=== PATIENT | female | born 2000 | race Hispanic/Latino ===

== ENCOUNTER → 2025-04-20 | Outpatient (CLI) | payer OTHER ==
--- NOTE | 2025-04-21 01:04 | HMCSR ---
APPROVED REPORT EXAM: Two-dimensional and M-mode echocardiogram with Doppler and color Doppler. INDICATION ICD: Palpitations R00.2 2D Dimensions RVDd3.4 cmLVEF(%)68.7 (>50%)LVED Vol(simp.)71.0 mL IVSd0.9 (0.7-1.1cm)FS(%)38 %LVES Vol(simp.)24.0 mL LVDd4.1 (3.8-5.6cm)LA (2D)3.9 (1.6-4.0cm)LVEF(%, simp.)66 % PWd0.8 (0.7-1.1cm)Ao Root(2D)2.7 (2.0-3.7cm)LA ESV INDEX (BP)23.70 mL/m2 IVSs1.1 cmLVOT diam2.0 (1.8-2.4cm) LVDs2.5 (2.5-4.0cm)IVC diam1.6 cm PWs1.5 cm M-Mode Dimensions EPSS0.5 cm LA (MM)4.0 (1.6-4.0cm) Ao Root(MM)3.1 (2.0-3.7cm) Aortic Valve AoV Vmax1.4 m/Jigar Peak GR8.4 mmHgLVOT Vmax1.5 m/s AoV VTI0.3 mAo Mean GR4.9 mmHgLVOT VTI0.26 m NINA (VMAX)3.38 cm2AVA (VTI) 3.1 cm2 Mitral Valve MV E Vmax87.3 cm/sDECEL Powm164 ms MV A Vmax50.5 cm/sP 1/2 T56 ms E/A ratio1.7MVA (PHT)3.9 cm2 TDI E/E' Medial7.1E/E' Lateral6.1 Medial E' Peak V12.36 cm/sLateral E' Peak V14.27 cm/s Pulmonary Valve PV Vmax1.3 m/sPV VTI0.24 mPV Mean GR4.0 mmHg PV Peak GR6.9 mmHgPI End Ellen. Luis Daniel 98.3 cm/s Tricuspid Valve TR Vmax1.1 m/sRAP (EST) 3 mmHgRVSP7.5 mmHg TR Peak GR4.5 mmHg Left Ventricle The left ventricle is normal size. No regional wall motion abnormalities noted. There is normal left ventricular wall thickness. Left ventricular systolic function is normal, estimated LVEF is 60 to 65% . The left ventricular diastolic function is normal. Right Ventricle The right ventricle is normal size. The right ventricular systolic function is normal. Atria The left atrium size is normal. The right atrium size is normal. Aortic Valve The aortic valve is normal in structure. No aortic regurgitation is present. There is no aortic valvu lar stenosis. Mitral Valve The mitral valve is normal in structure. Trace mitral regurgitation There is no mitral valve stenosis . Tricuspid Valve The tricuspid valve is normal in structure. Trace tricuspid regurgitation. RVSP is normal. Pulmonic Valve Pulmonic valve is not well visualized. Great Vessels The aortic root is normal in size. The IVC is normal in size and collapses >50% with inspiration. Pericardium There is no pericardial effusion. Conclusion The cardiac chambers are normal in size. There is normal left ventricular wall thickness. No regional wall motion abnormalities noted. Left ventricular systolic function is normal, estimated LVEF is 60 to 65%. The left ventricular diastolic function is normal. Trace mitral regurgitation. Trace tricuspid regurgitation. PASP is normal. There is no pericardial effusion.
== END | disposition home or self-care (01) ==
LOC: RAH 13:03
PROVIDERS: ATTEND Chiropractor
DX: R00.2 Palpitations (principal); D45 Polycythemia vera
CPT/HCPCS: 93306